=== PATIENT | female | born 1975 | race Caucasian/White ===

== ENCOUNTER 2017-03-20 10:25 | Inpatient (IN) | payer OTHER ==
[2017-03-20 12:51] VITALS: BMI 26.5
--- NOTE | 2017-03-20 14:03 | HP ---
COWS - Scale Resting Pulse: 1= NC 81-100 Sweatin=Flushed/Facial Moisture Restless Observation: 1= Difficult to Sit Still Pupil Size: 0= Normal to Room Light Bone or Joint Aches: 2= Severe Diffuse Aches Runny Nose/ Eye Tearin= Runny Nose/Eyes GI Upset > 30mins: 2= Nausea/Diarrhea Tremor Observation: 2= Slight Tremor Visible Yawning Observation: 2= >3x During Session Anxiety or Irritability: 2=Irritable/Anxious Goose Flesh Skin: 3=Piloerection COWS Score: 19 CIWA Score - CIWA Score Nausea/Vomitin-No Nausea/No Vomiting Muscle Tremors: 4-Moderate,w/Arms Extend Anxiety: 4-Mod. Anxious/Guarded Agitation: 4-Moderately Restless Paroxysmal Sweats: 3 Orientation: 0-Oriented Tacttile Disturbances: 0-None Auditory Disturbances: 0-None Visual Disturbances: 0-None Headache: 1-Very Mild CIWA-Ar Total Score: 16 Admission ROS S - HPI Chief Complaint: I am here for detox. Allergies/Adverse Reactions: Allergies Allergy/AdvReac Type Severity Reaction Status Date / Time No Known Drug Allergies Allergy Verified 03/20/17 13:49 History of Present Illness: pt is a 42yr old female with a history of heroin and alcohol dependence seeking detox for treatment. pt had been going to [facility] for a methadone abstinence program; however she stopped going and her last dose was 25mg on 03/01/17. since then pt was using heroin to maintain and now is ready for detox. Exam Limitations: No Limitations - Ebola screening Have you traveled outside of the country in the last 21 days: No Have you had contact with anyone from an Ebola affected area: No Have you been sick,other than usual withdrawal symptoms: No Do you have a fever: No - Review of Systems Constitutional: Chills, Loss of Appetite, Night Sweats, Changes in sleep, Unintentional Wgt. Loss EENT: reports: Nose Congestion Respiratory: reports: No Symptoms reported Cardiac: reports: No Symptoms Reported GI: reports: Diarrhea, Nausea, Poor Appetite, Poor Fluid Intake : reports: No Symptoms Reported Musculoskeletal: reports: Muscle Pain Integumentary: reports: Flushing, Sweating Neuro: reports: Headache, Tingling, Tremors Endocrine: reports: Excessive Sweating, Flushing, Intolerance to Cold, Intolerance to Heat Hematology: reports: No Symptoms Reported Psychiatric: reports: Judgement Intact, Mood/Affect Appropiate, Orientated x3, Agitated, Anxious Other Systems: Reviewed and Negative Patient History - Patient Medical History Hx Anemia: No Hx Asthma: No Hx Chronic Obstructive Pulmonary Disease (COPD): No Hx Cancer: No Hx Cardiac Disorders: No Hx Congestive Heart Failure: No Hx Hypertension: No Hx Hypercholesterolemia: No Hx Pacemaker: No HX Cerebrovascular Accident: No Hx Seizures: No Hx Dementia: No Hx Diabetes: No Hx Gastrointestinal Disorders: No Hx Liver Disease: No Hx Genitourinary Disorders: No Hx Sexually Transmitted Disorders: No Hx Renal Disease (ESRD): No Hx Thyroid Disease: No Hx Human Immunodeficiency Virus (HIV): No (negative) Hx Hepatitis C: No (negative) Hx Depression: No Hx Suicide Attempt: No Hx Bipolar Disorder: No Hx Schizophrenia: No - Patient Surgical History Past Surgical History: No Hx Neurologic Surgery: No Hx Cataract Extraction: No Hx Cardiac Surgery: No Hx Lung Surgery: No Hx Breast Surgery: No Hx Breast Biopsy: No Hx Abdominal Surgery: No Hx Appendectomy: No Hx Cholecystectomy: No Hx Genitourinary Surgery: No Hx Section: No Hx Orthopedic Surgery: No Anesthesia Reaction: No - PPD History Previous Implant?: Yes Documented Results: Positive w/o proof Implanted On Prior [facility] Admission?: No - Reproductive History Patient is a Female of Child Bearing Age (11 -55 yrs old): Yes Last Menstrual Period: 03/15/17 Patient : No - Smoking Cessation Smoking history: Current every day smoker Have you smoked in the past 12 months: Yes Aproximately how many cigarettes per day: 20 Cigars Per Day: 0 Hx Chewing Tobacco Use: No Initiated information on smoking cessation: Yes 'Breaking Loose' booklet given: 03/20/17 - Substance & Tx. History Hx Alcohol Use: Yes Hx Substance Use: Yes Substance Use Type: Alcohol, Cocaine, Heroin Hx Substance Use Treatment: Yes (last detox 2017 [facility]) - Substances Abused Heroin Route: Injection Frequency: Daily Amount used: 10 BAGS Age of first use: 12 Date of Last Use: 03/20/17 Alcohol Route: Oral Frequency: Daily Amount used: 10 BEERS Age of first use: 12 Date of Last Use: 03/19/17 Cocaine Route: Injection Frequency: Daily Amount used: $100 Age of first use: 12 Date of Last Use: 03/19/17 Family Disease History - Family Disease History Family History: Denies Admission Physical Exam [facility] - Vital Signs Vital Signs: Vital Signs - 24 hr 03/20/17 12:49 Temperature 96.4 F L Pulse Rate 82 Respiratory 19 Rate Blood Pressure 117/68 - Physical General Appearance: Yes: Appropriately Dressed, Moderate Distress HEENTM: Yes: Normal Voice, Nasal Congestion, Rhinorrhea Respiratory: Yes: Lungs Clear, Normal Breath Sounds, No Respiratory Distress Neck: Yes: No masses,lesions,Nodules Breast: Yes: Within Normal Limits Cardiology: Yes: Regular Rhythm, Regular Rate, S1, S2 Abdominal: Yes: Normal Bowel Sounds, Non Tender, Soft Genitourinary: Yes: Within Normal Limits Back: Yes: Normal Inspection Musculoskeletal: Yes: full range of Motion, Back pain Extremities: Yes: Normal Capillary Refill, Normal Inspection, Tremors Neurological: Yes: Fully Oriented, Alert, Normal Response Integumentary: Yes: Normal Color, Diaphoresis Lymphatic: Yes: Within Normal Limits - Diagnostic (1) Alcohol dependence with uncomplicated withdrawal Current Visit: Yes Status: Chronic (2) Cannabis dependence, uncomplicated Current Visit: Yes Status: Chronic (3) Cocaine dependence, uncomplicated Current Visit: Yes Status: Chronic (4) History of positive PPD Current Visit: Yes Status: Chronic (5) Nicotine dependence Current Visit: Yes Status: Chronic Qualifiers: Nicotine product type: cigarettes Substance use status: uncomplicated Qualified Code(s): F17.210 - Nicotine dependence, cigarettes, uncomplicated (6) Uncomplicated opioid dependence Current Visit: Yes Status: Chronic Cleared for Admission [facility] - Detox or Rehab [facility] Level of Care: Medically Managed Detox Regimen/Protocol: Methadone/Librium [facility] Breath Alcohol Content Breath Alcohol Content: 0 Urine Pregancy Test - Result Urine Test Results: Negative- NO Line Present Urine Drug Screen - Results Drug Screen Negative: No Urine Drug Screen Results: THC-Marijuana, CARMEN-Cocaine, OPI-Opiates, MTD- Methadone
[2017-03-20] MEDS ORDERED: MAG HYDROX/AL HYDROX/SIMETH 30 ML UNIT-DOSE CUP PO PRN (14:07)
[2017-03-20] MEDS ORDERED: LOPERAMIDE HCL 2 MG CAPSULE PO PRN (14:07)
[2017-03-20] MEDS ORDERED: ACETAMINOPHEN 325 MG TABLET (FP) PO PRN (14:07)
[2017-03-20] MEDS ORDERED: IBUPROFEN 400 MG TABLET (FP) PO PRN (14:07)
[2017-03-20] MEDS ORDERED: MENTHOL/PHENOL 1 EACH UD MM PRN (14:07)
[2017-03-20] MEDS ORDERED: guaiFENesin/D-METHORPHAN HB 10 ML UNIT-DOSE CUPS PO PRN (14:07)
[2017-03-20] MEDS ORDERED: NICOTINE POLACRILEX 4 MG GUM BUC PRN (14:07)
[2017-03-20] MEDS ORDERED: MAGNESIUM CITRATE 300 ML BOTTLE PO PRN (14:07)
[2017-03-20] MEDS ORDERED: chlordiazePOXIDE HCL 25 MG CAPSULE PO PRN (14:07)
[2017-03-20] MEDS ORDERED: P-EPHED 60MG/TRIPROLIDI 2.5MG TABLET PO PRN (14:07)
[2017-03-20] MEDS ORDERED: MAGNESIUM HYDROX 2400MG/30ML ORAL SUSPENSION 30 ML CUP PO PRN (14:07)
[2017-03-20] MEDS ORDERED: hydrOXYzine PAMOATE 50 MG CAPSULE (FP) PO PRN (14:07)
[2017-03-20] MEDS ORDERED: METHADONE HCL 10 MG TABLET (FOR DETOX USE ONLY) PO ONE ×2 (14:36→23:00)
[2017-03-20] MEDS ORDERED: chlordiazePOXIDE HCL 25 MG CAPSULE PO ONE (14:36)
[2017-03-20] MEDS: chlordiazePOXIDE HCL 25 MG CAPSULE PO SCH ×2 (18:05→22:15)
[2017-03-20] MEDS ORDERED: THIAMINE HCL 100 MG TABLET (FP) PO SCH (22:00)
[2017-03-21 00:05] LABS: URINE APPEARANCE CLOUDY; URINE BILIRUBIN NEGATIVE (NEGATIVE); URINE BLOOD NEGATIVE (NEGATIVE); URINE COLOR DKYELLOW; URINE GLUCOSE (UA) NEGATIVE (NEGATIVE); URINE KETONE TRACE (NEGATIVE); URINE LEUK ESTERASE NEGATIVE (NEGATIVE); URINE NITRITE NEGATIVE (NEGATIVE); URINE PROTEIN NEGATIVE (NEGATIVE)
[2017-03-21] MEDS: chlordiazePOXIDE HCL 25 MG CAPSULE PO SCH ×2 (06:35→10:25)
[2017-03-21] MEDS ORDERED: PRENATAL VITAMINS W/ FOLIC ACID TABLET (FP) PO SCH (10:00)
[2017-03-21] MEDS ORDERED: METHADONE HCL 10 MG TABLET (FOR DETOX USE ONLY) PO SCH (10:00)
[2017-03-21] MEDS ORDERED: NICOTINE 21 MG/24 HOURS TOPICAL PATCH TD SCH (10:00)
[2017-03-21 10:16] LABS: HEMATOCRIT 35.6 % (32.4-45.2); HEMOGLOBIN 11.6 GM/dL (10.7-15.3); MCHC 32.6 g/dl (32.0-36.0); MEAN CELL VOLUME 82.9 fl (80-96); PLATELET COUNT 304 K/MM3 (134-434); RBC 4.29 M/mm3 (3.60-5.2); WHITE BLOOD COUNT 10.6 K/mm3 (4.0-10.0)
[2017-03-21 10:34] LABS: ALBUMIN 3.4 g/dl (3.4-5.0); ANION GAP 5 (8-16); BLOOD UREA NITROGEN 20 mg/dL (7-18); CALCIUM 8.7 mg/dL (8.5-10.1); CHLORIDE 107 mmol/L (98-107); CO2 29 mmol/L (21-32); CREATININE 0.9 mg/dL (0.55-1.02); GLUCOSE,RANDOM 89 mg/dL (74-106); POTASSIUM 4.6 mmol/L (3.5-5.1); SGOT/AST 12 U/L (15-37); SGPT/ALT 17 U/L (12-78); SODIUM 141 mmol/L (136-145)
[2017-03-21 10:35] LABS: ALK PHOS 77 U/L (45-117); BILIRUBIN,TOTAL 0.3 mg/dL (0.2-1.0); TOT PROT 7.3 g/dl (6.4-8.2)
--- NOTE | 2017-03-21 10:40 | EKG ---
Test Reason : Blood Pressure : / mmHG Vent. Rate : 076 BPM Atrial Rate : 076 BPM P-R Int : 138 ms QRS Dur : 078 ms QT Int : 396 ms P-R-T Axes : 068 047 055 degrees QTc Int : 445 ms NORMAL SINUS RHYTHM CANNOT RULE OUT ANTERIOR INFARCT , AGE UNDETERMINED ABNORMAL ECG WHEN COMPARED WITH ECG OF 29-NOV-2016 21:15, NO SIGNIFICANT CHANGE WAS FOUND Confirmed by COSME UGARTE, NGUYEN ([id number]) on 03/21/2017 10:40:17 AM Referred By: Confirmed By:NGUYEN AGUIAR MD
--- NOTE | 2017-03-21 13:29 | PN ---
S CIWA - CIWA Score Nausea/Vomitin Muscle Tremors: 4-Moderate,w/Arms Extend Anxiety: 4-Mod. Anxious/Guarded Agitation: 1-Slight > Activity Paroxysmal Sweats: 3 Orientation: 0-Oriented Tacttile Disturbances: 1-Very Mild Itch/Numbness Auditory Disturbances: 1-Very Mild Visual Disturbances: 1-Very Mild Sensitivity Headache: 0-None Present CIWA-Ar Total Score: 18 BHS COWS - Scale Resting Pulse: 0= LA 80 or Below Sweatin= Chills/Flushing Restless Observation: 1= Difficult to Sit Still Pupil Size: 0= Normal to Room Light Bone or Joint Aches: 2= Severe Diffuse Aches Runny Nose/ Eye Tearin= None GI Upset > 30mins: 2= Nausea/Diarrhea Tremor Observation of Outstretched Hands: 2= Slight Tremor Visible Yawning Observation: 2= >3x During Session Anxiety or Irritability: 2=Irritable/Anxious Goose Flesh Skin: 3=Piloerection COWS Score: 15 BHS Progress Note (SOAP) Subjective: alert, body aches, shakes, chills, interrupted sleep Objective: 03/21/17 13:24 Last Vital Signs Temp Pulse Resp BP Pulse Ox 98.3 F 79 20 126/75 03/21/17 10:00 03/21/17 10:00 03/21/17 10:00 03/21/17 10:00 Laboratory Last Values WBC 10.6 K/mm3 (4.0-10.0) H 03/21/17 05:45 RBC 4.29 M/mm3 (3.60-5.2) 03/21/17 05:45 Hgb 11.6 GM/dL (10.7-15.3) 03/21/17 05:45 Hct 35.6 % (32.4-45.2) 03/21/17 05:45 MCV 82.9 fl (80-96) 03/21/17 05:45 MCH 27.0 pg (25.7-33.7) 03/21/17 05:45 MCHC 32.6 g/dl (32.0-36.0) 03/21/17 05:45 RDW 18.0 % (11.6-15.6) H D 03/21/17 05:45 Plt Count 304 K/MM3 (134-434) 03/21/17 05:45 MPV 8.0 fl (7.5-11.1) D 03/21/17 05:45 Sodium 141 mmol/L (136-145) 03/21/17 05:45 Potassium 4.6 mmol/L (3.5-5.1) 03/21/17 05:45 Chloride 107 mmol/L (98-107) 03/21/17 05:45 Carbon Dioxide 29 mmol/L (21-32) 03/21/17 05:45 Anion Gap 5 (8-16) L 03/21/17 05:45 BUN 20 mg/dL (7-18) H 03/21/17 05:45 Creatinine 0.9 mg/dL (0.55-1.02) 03/21/17 05:45 Creat Clearance w eGFR > 60 (>60) 03/21/17 05:45 Random Glucose 89 mg/dL (74-106) 03/21/17 05:45 Calcium 8.7 mg/dL (8.5-10.1) 03/21/17 05:45 Total Bilirubin 0.3 mg/dL (0.2-1.0) D 03/21/17 05:45 AST 12 U/L (15-37) L 03/21/17 05:45 ALT 17 U/L (12-78) 03/21/17 05:45 Alkaline Phosphatase 77 U/L (45-117) 03/21/17 05:45 Total Protein 7.3 g/dl (6.4-8.2) 03/21/17 05:45 Albumin 3.4 g/dl (3.4-5.0) 03/21/17 05:45 Urine Color Dkyellow 03/20/17 19:43 Urine Appearance Cloudy 03/20/17 19:43 Urine pH 6.0 (5.0-8.0) 03/20/17 19:43 Ur Specific [place] 1.029 (1.001-1.035) 03/20/17 19:43 Urine Protein Negative (NEGATIVE) 03/20/17 19:43 Urine Glucose (UA) Negative (NEGATIVE) 03/20/17 19:43 Urine Ketones Trace (NEGATIVE) H 03/20/17 19:43 Urine Blood Negative (NEGATIVE) 03/20/17 19:43 Urine Nitrite Negative (NEGATIVE) 03/20/17 19:43 Urine Bilirubin Negative (NEGATIVE) 03/20/17 19:43 Urine Urobilinogen 2.0 mg/dL (0.2-1.0) H 03/20/17 19:43 Ur Leukocyte Esterase Negative (NEGATIVE) 03/20/17 19:43 Labs noted Assessment: 03/21/17 13:24 AOx3 No apparent distress Withdrawals symptoms Plan: Continue Detox
[2017-03-21 14:33] VITALS: TEMP 98.1
[2017-03-21] MEDS ORDERED: chlordiazePOXIDE HCL 25 MG CAPSULE PO SCH (17:00)
[2017-03-21 18:04] VITALS: BP 116/76; PULSE 73
--- NOTE | 2017-03-21 22:07 | DS ---
[facility] Detox Discharge Summary Admission Date: 03/20/17 Discharge Date: 03/21/17 - History Present History: Alcohol Dependence, Opioid Dependence Pertinent Past History: PATIENT WANTS TO LEAVE THE DETOX UNIT REFUSES TO WAIT FACE TO FACE WITH THE PROVIDER - Physical Exam Results Vital Signs: Vital Signs Temperature 98.1 F 03/21/17 18:03 Pulse Rate 73 03/21/17 18:03 Respiratory Rate 18 03/21/17 18:03 Blood Pressure 116/76 03/21/17 18:03 O2 Sat by Pulse Oximetry (%) Pertinent Admission Physical Exam Findings: WITHDRAWAL SX Vital Signs Temperature 98.1 F 03/21/17 18:03 Pulse Rate 73 03/21/17 18:03 Respiratory Rate 18 03/21/17 18:03 Blood Pressure 116/76 03/21/17 18:03 O2 Sat by Pulse Oximetry (%) Laboratory Last Values WBC 10.6 K/mm3 (4.0-10.0) H 03/21/17 05:45 RBC 4.29 M/mm3 (3.60-5.2) 03/21/17 05:45 Hgb 11.6 GM/dL (10.7-15.3) 03/21/17 05:45 Hct 35.6 % (32.4-45.2) 03/21/17 05:45 MCV 82.9 fl (80-96) 03/21/17 05:45 MCH 27.0 pg (25.7-33.7) 03/21/17 05:45 MCHC 32.6 g/dl (32.0-36.0) 03/21/17 05:45 RDW 18.0 % (11.6-15.6) H D 03/21/17 05:45 Plt Count 304 K/MM3 (134-434) 03/21/17 05:45 MPV 8.0 fl (7.5-11.1) D 03/21/17 05:45 Sodium 141 mmol/L (136-145) 03/21/17 05:45 Potassium 4.6 mmol/L (3.5-5.1) 03/21/17 05:45 Chloride 107 mmol/L (98-107) 03/21/17 05:45 Carbon Dioxide 29 mmol/L (21-32) 03/21/17 05:45 Anion Gap 5 (8-16) L 03/21/17 05:45 BUN 20 mg/dL (7-18) H 03/21/17 05:45 Creatinine 0.9 mg/dL (0.55-1.02) 03/21/17 05:45 Creat Clearance w eGFR > 60 (>60) 03/21/17 05:45 Random Glucose 89 mg/dL (74-106) 03/21/17 05:45 Calcium 8.7 mg/dL (8.5-10.1) 03/21/17 05:45 Total Bilirubin 0.3 mg/dL (0.2-1.0) D 03/21/17 05:45 AST 12 U/L (15-37) L 03/21/17 05:45 ALT 17 U/L (12-78) 03/21/17 05:45 Alkaline Phosphatase 77 U/L (45-117) 03/21/17 05:45 Total Protein 7.3 g/dl (6.4-8.2) 03/21/17 05:45 Albumin 3.4 g/dl (3.4-5.0) 03/21/17 05:45 Urine Color Dkyellow 03/20/17 19:43 Urine Appearance Cloudy 03/20/17 19:43 Urine pH 6.0 (5.0-8.0) 03/20/17 19:43 Ur Specific [place] 1.029 (1.001-1.035) 03/20/17 19:43 Urine Protein Negative (NEGATIVE) 03/20/17 19:43 Urine Glucose (UA) Negative (NEGATIVE) 03/20/17 19:43 Urine Ketones Trace (NEGATIVE) H 03/20/17 19:43 Urine Blood Negative (NEGATIVE) 03/20/17 19:43 Urine Nitrite Negative (NEGATIVE) 03/20/17 19:43 Urine Bilirubin Negative (NEGATIVE) 03/20/17 19:43 Urine Urobilinogen 2.0 mg/dL (0.2-1.0) H 03/20/17 19:43 Ur Leukocyte Esterase Negative (NEGATIVE) 03/20/17 19:43 RPR Titer Nonreactive (NONREACTIVE) 03/21/17 05:45 LAB NOTED - Treatment Hospital Course: Detox Protocol Followed, Responded well - Medication Discharge Medications: Ambulatory Orders NK [No Known Home Medication] 03/20/17 - AMA Did Patient Leave Against Medical Advice: Yes
[2017-03-22] MEDS ORDERED: METHADONE HCL 5 MG TABLET (FOR DETOX USE ONLY) PO SCH (10:00)
[2017-03-22] MEDS ORDERED: chlordiazePOXIDE 5 MG CAPSULE PO SCH (17:00)
[2017-03-23] MEDS ORDERED: chlordiazePOXIDE HCL 10 MG CAPSULE PO SCH (17:00)
[2017-03-24] MEDS ORDERED: METHADONE HCL 10 MG TABLET (FOR DETOX USE ONLY) PO SCH (10:00)
[2017-03-25] MEDS ORDERED: METHADONE HCL 5 MG TABLET (FOR DETOX USE ONLY) PO SCH (06:00)
== END 2017-03-21 18:42 | disposition left against medical advice (07) | DRG 770 ==
LOC: YASAS 10:25 → Y6N 14:23
PROVIDERS: ADMIT Internal Medicine; ATTEND Internal Medicine
PROC: HZ2ZZZZ Detoxification Services for Substance Abuse Treatment (ICD-10-PCS; principal; 2017-03-20)
DX: F11.23 Opioid dependence with withdrawal (principal); F10.230 Alcohol dependence with withdrawal, uncomplicated; F14.20 Cocaine dependence, uncomplicated; F12.20 Cannabis dependence, uncomplicated; F17.210 Nicotine dependence, cigarettes, uncomplicated; R76.11 Nonspecific reaction to tuberculin skin test without active tuberculosis
CPT/HCPCS: 36415; 80053; 81003; 85027; 86593; 93005; 93010

== ENCOUNTER 2017-10-05 10:50 | Inpatient (IN) | payer OTHER ==
[2017-10-05 11:24] VITALS: BMI 29.0
--- NOTE | 2017-10-05 13:16 | HP ---
CIWA Score - CIWA Score Nausea/Vomitin Muscle Tremors: 3 Anxiety: 2 Agitation: 2 Paroxysmal Sweats: 3 Orientation: 0-Oriented Tacttile Disturbances: 2-Mild Itch/Numbness/Burn Auditory Disturbances: 0-None Visual Disturbances: 0-None Headache: 0-None Present CIWA-Ar Total Score: 15 Admission ROS BHS - HPI Chief Complaint: I need to detox from alcohol and xanaax. Allergies/Adverse Reactions: Allergies Allergy/AdvReac Type Severity Reaction Status Date / Time No Known Drug Allergies Allergy Verified 10/05/17 11:11 History of Present Illness: 42 y/o f pt on OTP who has been abusing alcohol and xanax seeking detox. Exam Limitations: No Limitations - Ebola screening Have you traveled outside of the country in the last 21 days: No Have you had contact with anyone from an Ebola affected area: No Have you been sick,other than usual withdrawal symptoms: No Do you have a fever: No - Review of Systems Constitutional: Malaise, Night Sweats EENT: reports: No Symptoms Reported Respiratory: reports: No Symptoms reported Cardiac: reports: No Symptoms Reported GI: reports: Nausea, Indigestion, Abdominal cramping : reports: Frequency Musculoskeletal: reports: Back Pain, Muscle Pain Integumentary: reports: No Symptoms Reported Neuro: reports: Tremors Endocrine: reports: No Symptoms Reported Hematology: reports: No Symptoms Reported Psychiatric: reports: Orientated x3 Other Systems: Reviewed and Negative Patient History - Patient Medical History Hx Anemia: No Hx Asthma: No Hx Chronic Obstructive Pulmonary Disease (COPD): No Hx Cancer: No Hx Cardiac Disorders: No Hx Congestive Heart Failure: No Hx Hypertension: No Hx Hypercholesterolemia: No Hx Pacemaker: No HX Cerebrovascular Accident: No Hx Seizures: No Hx Dementia: No Hx Diabetes: No Hx Gastrointestinal Disorders: No Hx Liver Disease: No Hx Genitourinary Disorders: No Hx Sexually Transmitted Disorders: No Hx Renal Disease (ESRD): No Hx Thyroid Disease: No Hx Human Immunodeficiency Virus (HIV): Yes (July 2017 @ [facility] no meds x 2 weeks ) Hx Hepatitis C: Yes (but negative viral load) Hx Depression: No Hx Suicide Attempt: No Hx Bipolar Disorder: Yes Hx Schizophrenia: No - Patient Surgical History Past Surgical History: No Hx Neurologic Surgery: No Hx Cataract Extraction: No Hx Cardiac Surgery: No Hx Lung Surgery: No Hx Breast Surgery: No Hx Breast Biopsy: No Hx Abdominal Surgery: No Hx Appendectomy: Yes (age 7) Hx Cholecystectomy: No Hx Genitourinary Surgery: No Hx Section: No Hx Orthopedic Surgery: No Other Surgical History: tonsillectomy age 14 Anesthesia Reaction: No - PPD History Previous Implant?: Yes Documented Results: Positive w/o proof Date: 11/30/16 Results: CXR(-)11/30/16 - Reproductive History Patient is a Female of Child Bearing Age (11 -55 yrs old): Yes Last Menstrual Period: 09/26/17 Patient : No - Smoking Cessation Smoking history: Current every day smoker Have you smoked in the past 12 months: Yes Aproximately how many cigarettes per day: 20 Cigars Per Day: 0 Hx Chewing Tobacco Use: No Initiated information on smoking cessation: Yes 'Breaking Loose' booklet given: 10/05/17 - Substance & Tx. History Hx Alcohol Use: Yes Hx Substance Use: Yes Substance Use Type: Alcohol, Opiates, Tranquilizers Hx Substance Use Treatment: Yes ([facility] ) - Substances Abused Cocaine Route: Injection Frequency: Daily Amount used: $80 Age of first use: 12 Date of Last Use: 10/04/17 Heroin Route: Injection Frequency: Daily Amount used: 1-2 bags Age of first use: 12 Date of Last Use: 10/04/17 Alcohol-vodka/beer Route: Oral Frequency: Daily Amount used: 2 pts./1-6 pk. Age of first use: 12 Date of Last Use: 10/04/17 Xanax Route: Oral Frequency: 3-6 times per week Amount used: 4 mg. Age of first use: 32 Date of Last Use: 09/28/17 Percocet Route: Oral Frequency: 1-3 times last 30 days Amount used: 1-2 tabs. (10 mg.) Age of first use: 41 Date of Last Use: 10/04/17 Family Disease History - Family Disease History Family Disease History: Other: Father (living, on dialysis, etoh/drugs), Mother (living, healthy), Brother (one - living- healthy ) Admission Physical Exam BHS - Vital Signs Vital Signs: Vital Signs - 24 hr 10/05/17 11:17 Temperature 98.2 F Pulse Rate 71 Respiratory 20 Rate Blood Pressure 112/73 42 y/o f pt aox3 , anxious , restless , shaky , but cooperative. - Physical General Appearance: Yes: No Apparent Distress, Tremorous, Sweating, Anxious HEENTM: Yes: EOMI, Hearing grossly Normal, Normal Voice, RUSSELL, Other (upper and lower dentures) Respiratory: Yes: Chest Non-Tender, Lungs Clear, Normal Breath Sounds, No Respiratory Distress Neck: Yes: Supple, Trachea in good position, Other (left neck mass non tender at site of iv use) Breast: Yes: Breast Exam Deferred Cardiology: Yes: Regular Rhythm, Regular Rate, S1, S2 Abdominal: Yes: Non Tender, Soft, Increased Bowel Sounds Genitourinary: Yes: Frequency Back: Yes: Decreased Range of Motion Musculoskeletal: Yes: Back pain Extremities: Yes: Tremors, Other (scattereed track tao on hands) Neurological: Yes: [employer] insurance II-XII NML intact, Fully Oriented, Alert, Motor Strength 5/5, Finger to Nose Integumentary: Yes: Diaphoresis Lymphatic: Yes: Within Normal Limits - Diagnostic (1) Alcohol dependence with uncomplicated withdrawal Current Visit: No Status: Chronic (2) Methadone maintenance therapy patient Current Visit: No Status: Chronic Comment: LDM on 10/04/2017 with methadone 70mg/d at [facility]. Verified by Lorin Valencia LPN. (3) Cocaine dependence, uncomplicated Current Visit: No Status: Acute (4) Sedative, hypnotic or anxiolytic dependence with withdrawal, uncomplicated Current Visit: No Status: Acute (5) Nicotine dependence Current Visit: No Status: Chronic Qualifiers: Nicotine product type: cigarettes Substance use status: uncomplicated Qualified Code(s): F17.210 - Nicotine dependence, cigarettes, uncomplicated (6) HIV (human immunodeficiency virus infection) Current Visit: Yes Status: Chronic Comment: Recently dx'ed in July 2017. Has not taken ARV x 2 months , can't recall names. (7) HCV (hepatitis C virus) Current Visit: Yes Status: Chronic Cleared for Admission S - Detox or Rehab [facility] Level of Care: Medically Managed Detox Regimen/Protocol: Librium [facility] Breath Alcohol Content Breath Alcohol Content: 0 Urine Pregancy Test - Result Urine Test Results: Negative- NO Line Present Urine Drug Screen - Results Drug Screen Negative: No Urine Drug Screen Results: CARMEN-Cocaine, OPI-Opiates, MTD-Methadone, OXY- Oxycodone
[2017-10-05] MEDS ORDERED: IBUPROFEN 400 MG TABLET (FP) PO PRN (13:46)
[2017-10-05] MEDS ORDERED: NICOTINE POLACRILEX 4 MG GUM BUC PRN (13:46)
[2017-10-05] MEDS ORDERED: MAG HYDROX/AL HYDROX/SIMETH 30 ML UNIT-DOSE CUP PO PRN (13:46)
[2017-10-05] MEDS ORDERED: MAGNESIUM CITRATE 300 ML BOTTLE PO PRN (13:46)
[2017-10-05] MEDS ORDERED: MAGNESIUM HYDROX 2400MG/30ML ORAL SUSPENSION 30 ML CUP PO PRN (13:46)
[2017-10-05] MEDS ORDERED: ACETAMINOPHEN 325 MG TABLET (FP) PO PRN (13:46)
[2017-10-05] MEDS ORDERED: LOPERAMIDE HCL 2 MG CAPSULE PO PRN (13:46)
[2017-10-05] MEDS ORDERED: guaiFENesin/D-METHORPHAN HB 10 ML UNIT-DOSE CUPS PO PRN (13:46)
[2017-10-05] MEDS ORDERED: MENTHOL/PHENOL 1 EACH UD MM PRN (13:46)
[2017-10-05] MEDS ORDERED: hydrOXYzine PAMOATE 25 MG CAPSULE (FP) PO PRN (13:46)
[2017-10-05] MEDS ORDERED: P-EPHED 60MG/TRIPROLIDI 2.5MG TABLET PO PRN (13:46)
[2017-10-05] MEDS ORDERED: METHADONE HCL 10 MG TABLET PO ONE (13:50)
[2017-10-05] MEDS ORDERED: chlordiazePOXIDE HCL 25 MG CAPSULE PO ONE (14:15)
[2017-10-05] MEDS ORDERED: METHADONE 40 MG, METHADONE 30 MG PO ONE (14:30)
[2017-10-05] MEDS ORDERED: METHADONE HCL 40 MG DISPERSABLE TABLET ONE (14:45)
[2017-10-05] MEDS ORDERED: METHADONE HCL 10 MG TABLET ONE (14:45)
[2017-10-05] MEDS: chlordiazePOXIDE HCL 25 MG CAPSULE PO SCH ×2 (17:12→22:11)
[2017-10-05] MEDS: THIAMINE HCL 100 MG TABLET (FP) PO SCH (22:11)
[2017-10-05] MEDS: MELATONIN 5 MG TABLETS PO PRN (22:12)
[2017-10-06] MEDS ORDERED: METHADONE HCL 40 MG DISPERSABLE TABLET ONE (04:24)
[2017-10-06] MEDS ORDERED: METHADONE HCL 10 MG TABLET ONE (04:25)
[2017-10-06] MEDS: METHADONE 40 MG, METHADONE 30 MG PO SCH (05:39)
[2017-10-06] MEDS: chlordiazePOXIDE HCL 25 MG CAPSULE PO SCH ×4 (05:40→22:04)
[2017-10-06] MEDS ORDERED: METHADONE HCL 40 MG DISPERSABLE TABLET PO SCH (06:00)
--- NOTE | 2017-10-06 09:02 | EKG ---
Test Reason : Blood Pressure : / mmHG Vent. Rate : 060 BPM Atrial Rate : 060 BPM P-R Int : 140 ms QRS Dur : 076 ms QT Int : 448 ms P-R-T Axes : 063 039 051 degrees QTc Int : 448 ms NORMAL SINUS RHYTHM NORMAL ECG WHEN COMPARED WITH ECG OF 26-MAY-2017 14:46, NO SIGNIFICANT CHANGE WAS FOUND Confirmed by NGUYEN AGUIAR MD ([id number]) on 10/06/2017 9:02:43 AM Referred By: Confirmed By:NGUYEN AGUIAR MD
[2017-10-06] MEDS: PRENATAL VITAMINS W/ FOLIC ACID TABLET (FP) PO SCH (10:25)
[2017-10-06] MEDS: NICOTINE 21 MG/24 HOURS TOPICAL PATCH TD SCH (10:25)
[2017-10-06 10:28] LABS: URINE APPEARANCE TURBID; URINE BILIRUBIN NEGATIVE (<2.0 mg/dL); URINE COLOR YELLOW; URINE GLUCOSE (UA) NEGATIVE (NEGATIVE); URINE KETONE NEGATIVE (NEGATIVE); URINE LEUK ESTERASE TRACE (NEGATIVE); URINE NITRITE POSITIVE (NEGATIVE); URINE PROTEIN NEGATIVE (NEGATIVE); URINE UROBILINOGEN NEGATIVE mg/dL (0.2-1.0)
[2017-10-06 10:36] LABS: HEMATOCRIT 34.4 % (32.4-45.2); HEMOGLOBIN 11.3 GM/dL (10.7-15.3); MCH 28.3 pg (25.7-33.7); MCHC 32.8 g/dl (32.0-36.0); MEAN CELL VOLUME 86.2 fl (80-96); MEAN PLT VOLUME 8.3 fl (7.5-11.1); PLATELET COUNT 337 K/MM3 (134-434); RBC 3.99 M/mm3 (3.60-5.2); RDW 16.2 % (11.6-15.6)
[2017-10-06 10:40] LABS: CHLORIDE 104 mmol/L (98-107); POTASSIUM 5.4 mmol/L (3.5-5.1); SODIUM 137 mmol/L (136-145)
[2017-10-06 10:49] LABS: ALBUMIN 3.9 g/dl (3.4-5.0); ALK PHOS 96 U/L (45-117); ANION GAP 5 (8-16); BILIRUBIN,TOTAL 0.3 mg/dL (0.2-1.0); BLOOD UREA NITROGEN 21 mg/dL (7-18); CALCIUM 9.2 mg/dL (8.5-10.1); CO2 28 mmol/L (21-32); CREATININE 1.1 mg/dL (0.55-1.02); GLUCOSE,RANDOM 107 mg/dL (74-106); SGOT/AST 19 U/L (15-37); SGPT/ALT 31 U/L (12-78); TOT PROT 8.2 g/dl (6.4-8.2)
[2017-10-06 10:51] LABS: EPI CELLS MANY /HPF (FEW); URINE BACTERIA MANY /hpf (NONE SEEN); URINE MUCUS RARE
--- NOTE | 2017-10-06 14:22 | PN ---
[facility] CIWA - CIWA Score Nausea/Vomitin Muscle Tremors: 3 Anxiety: 3 Agitation: 2 Paroxysmal Sweats: 1-Minimal Palms Moist Orientation: 0-Oriented Tacttile Disturbances: 1-Very Mild Itch/Numbness Auditory Disturbances: 1-Very Mild Visual Disturbances: 0-None Headache: 2-Mild CIWA-Ar Total Score: 16 S Progress Note (SOAP) Subjective: alert,irritable,anxious,interrupted sleep,tremor Objective: 10/06/17 14:18 Vital Signs Temperature 98.1 F 10/06/17 10:07 Pulse Rate 55 L 10/06/17 10:07 Respiratory Rate 16 10/06/17 10:07 Blood Pressure 99/61 10/06/17 10:07 O2 Sat by Pulse Oximetry (%) ekg nsr 60/min qt/qtc 448/448 Laboratory Last Values WBC 7.0 K/mm3 (4.0-10.0) 10/06/17 06:00 RBC 3.99 M/mm3 (3.60-5.2) 10/06/17 06:00 Hgb 11.3 GM/dL (10.7-15.3) 10/06/17 06:00 Hct 34.4 % (32.4-45.2) 10/06/17 06:00 MCV 86.2 fl (80-96) 10/06/17 06:00 MCH 28.3 pg (25.7-33.7) 10/06/17 06:00 MCHC 32.8 g/dl (32.0-36.0) 10/06/17 06:00 RDW 16.2 % (11.6-15.6) H 10/06/17 06:00 Plt Count 337 K/MM3 (134-434) 10/06/17 06:00 MPV 8.3 fl (7.5-11.1) 10/06/17 06:00 Sodium 137 mmol/L (136-145) 10/06/17 06:00 Potassium 5.4 mmol/L (3.5-5.1) H 10/06/17 06:00 Chloride 104 mmol/L (98-107) 10/06/17 06:00 Carbon Dioxide 28 mmol/L (21-32) 10/06/17 06:00 Anion Gap 5 (8-16) L 10/06/17 06:00 BUN 21 mg/dL (7-18) H 10/06/17 06:00 Creatinine 1.1 mg/dL (0.55-1.02) H 10/06/17 06:00 Creat Clearance w eGFR 54.21 (>60) 10/06/17 06:00 Random Glucose 107 mg/dL (74-106) H 10/06/17 06:00 Calcium 9.2 mg/dL (8.5-10.1) 10/06/17 06:00 Total Bilirubin 0.3 mg/dL (0.2-1.0) 10/06/17 06:00 AST 19 U/L (15-37) 10/06/17 06:00 ALT 31 U/L (12-78) 10/06/17 06:00 Alkaline Phosphatase 96 U/L (45-117) 10/06/17 06:00 Total Protein 8.2 g/dl (6.4-8.2) 10/06/17 06:00 Albumin 3.9 g/dl (3.4-5.0) 10/06/17 06:00 Urine Color Yellow 10/06/17 09:00 Urine Appearance Turbid 10/06/17 09:00 Urine pH 6.0 (5.0-8.0) 10/06/17 09:00 Ur Specific [place] 1.024 (1.001-1.035) 10/06/17 09:00 Urine Protein Negative (NEGATIVE) 10/06/17 09:00 Urine Glucose (UA) Negative (NEGATIVE) 10/06/17 09:00 Urine Ketones Negative (NEGATIVE) 10/06/17 09:00 Urine Blood Negative (NEGATIVE) 10/06/17 09:00 Urine Nitrite Positive (NEGATIVE) 10/06/17 09:00 Urine Bilirubin Negative (<2.0 mg/dL) 10/06/17 09:00 Urine Urobilinogen Negative mg/dL (0.2-1.0) 10/06/17 09:00 Ur Leukocyte Esterase Trace (NEGATIVE) 10/06/17 09:00 Urine WBC (Auto) 41 /hpf (3-5) 10/06/17 09:00 Urine RBC (Auto) None /hpf (0-3) 10/06/17 09:00 Ur Epithelial Cells Many /HPF (FEW) 10/06/17 09:00 Urine Bacteria Many /hpf (NONE SEEN) 10/06/17 09:00 Urine Mucus Rare 10/06/17 09:00 Assessment: 10/06/17 14:19 withdrawal symptom Plan: continue detox,k is 5.4,bun 21,creatinine 1.1,encourage oral fluid,repeat bmp in am,repeat ua, kayexylate 15 gram po
[2017-10-06] MEDS ORDERED: SODIUM POLYSTYRENE SULFONATE 15 GM/60 ML BOTTLE PO ONE ×3 (14:23→18:30)
[2017-10-06] MEDS: THIAMINE HCL 100 MG TABLET (FP) PO SCH (22:04)
[2017-10-06] MEDS: MELATONIN 5 MG TABLETS PO PRN (22:04)
[2017-10-07] MEDS ORDERED: METHADONE HCL 40 MG DISPERSABLE TABLET ONE (02:49)
[2017-10-07] MEDS ORDERED: METHADONE HCL 10 MG TABLET ONE (02:50)
[2017-10-07] MEDS: chlordiazePOXIDE HCL 25 MG CAPSULE PO SCH ×2 (05:37→10:37)
[2017-10-07] MEDS: METHADONE 40 MG, METHADONE 30 MG PO SCH (05:37)
[2017-10-07 10:19] LABS: URINE APPEARANCE CLOUDY; URINE BILIRUBIN NEGATIVE (<2.0 mg/dL); URINE COLOR YELLOW; URINE GLUCOSE (UA) NEGATIVE (NEGATIVE); URINE KETONE NEGATIVE (NEGATIVE); URINE LEUK ESTERASE TRACE (NEGATIVE); URINE NITRITE NEGATIVE (NEGATIVE); URINE PROTEIN NEGATIVE (NEGATIVE); URINE UROBILINOGEN NEGATIVE mg/dL (0.2-1.0)
[2017-10-07 10:26] LABS: EPI CELLS MANY /HPF (FEW); URINE BACTERIA MANY /hpf (NONE SEEN); URINE HYALINE CAST 2 /lpf; URINE MUCUS RARE
[2017-10-07 10:33] LABS: CHLORIDE 104 mmol/L (98-107); POTASSIUM 5.1 mmol/L (3.5-5.1); SODIUM 139 mmol/L (136-145)
[2017-10-07] MEDS: PRENATAL VITAMINS W/ FOLIC ACID TABLET (FP) PO SCH (10:36)
[2017-10-07] MEDS: NICOTINE 21 MG/24 HOURS TOPICAL PATCH TD SCH (10:37)
[2017-10-07 10:39] LABS: ANION GAP 5 (8-16); BLOOD UREA NITROGEN 24 mg/dL (7-18); CALCIUM 8.6 mg/dL (8.5-10.1); CO2 30 mmol/L (21-32); CREATININE 0.8 mg/dL (0.55-1.02); GLUCOSE,RANDOM 77 mg/dL (74-106)
--- NOTE | 2017-10-07 13:22 | PN ---
[facility] CIWA - CIWA Score Nausea/Vomitin-No Nausea/No Vomiting Muscle Tremors: 4-Moderate,w/Arms Extend Anxiety: 4-Mod. Anxious/Guarded Agitation: 3 Paroxysmal Sweats: 1-Minimal Palms Moist Orientation: 0-Oriented Tacttile Disturbances: 0-None Auditory Disturbances: 0-None Visual Disturbances: 0-None Headache: 0-None Present CIWA-Ar Total Score: 12 BHS Progress Note (SOAP) Subjective: sweat tremor restlessness anxiety trouble sleep at night Objective: 10/07/17 13:21 Vital Signs Temperature 98.6 F 10/07/17 10:56 Pulse Rate 66 10/07/17 10:56 Respiratory Rate 18 10/07/17 10:56 Blood Pressure 110/72 10/07/17 10:56 O2 Sat by Pulse Oximetry (%) Laboratory Last Values WBC 7.0 K/mm3 (4.0-10.0) 10/06/17 06:00 RBC 3.99 M/mm3 (3.60-5.2) 10/06/17 06:00 Hgb 11.3 GM/dL (10.7-15.3) 10/06/17 06:00 Hct 34.4 % (32.4-45.2) 10/06/17 06:00 MCV 86.2 fl (80-96) 10/06/17 06:00 MCH 28.3 pg (25.7-33.7) 10/06/17 06:00 MCHC 32.8 g/dl (32.0-36.0) 10/06/17 06:00 RDW 16.2 % (11.6-15.6) H 10/06/17 06:00 Plt Count 337 K/MM3 (134-434) 10/06/17 06:00 MPV 8.3 fl (7.5-11.1) 10/06/17 06:00 Sodium 139 mmol/L (136-145) 10/07/17 07:40 Potassium 5.1 mmol/L (3.5-5.1) 10/07/17 07:40 Chloride 104 mmol/L (98-107) 10/07/17 07:40 Carbon Dioxide 30 mmol/L (21-32) 10/07/17 07:40 Anion Gap 5 (8-16) L 10/07/17 07:40 BUN 24 mg/dL (7-18) H 10/07/17 07:40 Creatinine 0.8 mg/dL (0.55-1.02) 10/07/17 07:40 Creat Clearance w eGFR > 60 (>60) 10/07/17 07:40 Random Glucose 77 mg/dL (74-106) 10/07/17 07:40 Calcium 8.6 mg/dL (8.5-10.1) 10/07/17 07:40 Total Bilirubin 0.3 mg/dL (0.2-1.0) 10/06/17 06:00 AST 19 U/L (15-37) 10/06/17 06:00 ALT 31 U/L (12-78) 10/06/17 06:00 Alkaline Phosphatase 96 U/L (45-117) 10/06/17 06:00 Total Protein 8.2 g/dl (6.4-8.2) 10/06/17 06:00 Albumin 3.9 g/dl (3.4-5.0) 10/06/17 06:00 Urine Color Yellow 10/07/17 08:00 Urine Appearance Cloudy 10/07/17 08:00 Urine pH 5.0 (5.0-8.0) 10/07/17 08:00 Ur Specific [place] 1.018 (1.001-1.035) 10/07/17 08:00 Urine Protein Negative (NEGATIVE) 10/07/17 08:00 Urine Glucose (UA) Negative (NEGATIVE) 10/07/17 08:00 Urine Ketones Negative (NEGATIVE) 10/07/17 08:00 Urine Blood Negative (NEGATIVE) 10/07/17 08:00 Urine Nitrite Negative (NEGATIVE) 10/07/17 08:00 Urine Bilirubin Negative (<2.0 mg/dL) 10/07/17 08:00 Urine Urobilinogen Negative mg/dL (0.2-1.0) 10/07/17 08:00 Ur Leukocyte Esterase Trace (NEGATIVE) 10/07/17 08:00 Urine WBC (Auto) 4 /hpf (3-5) 10/07/17 08:00 Urine RBC (Auto) 1 /hpf (0-3) 10/07/17 08:00 Ur Epithelial Cells Many /HPF (FEW) 10/07/17 08:00 Urine Bacteria Many /hpf (NONE SEEN) 10/07/17 08:00 Hyaline Casts 2 /lpf 10/07/17 08:00 Urine Mucus Rare 10/07/17 08:00 RPR Titer Nonreactive (NONREACTIVE) 10/06/17 06:00 lab noted repeat bun 10/07/17 13:22 Assessment: 10/07/17 13:22 withdrawal sx Plan: continue detox repeat bun
[2017-10-07] MEDS: chlordiazePOXIDE HCL 25 MG CAPSULE PO PRN (14:05)
[2017-10-07] MEDS: chlordiazePOXIDE 5 MG CAPSULE PO SCH ×2 (17:25→21:59)
[2017-10-07] MEDS: THIAMINE HCL 100 MG TABLET (FP) PO SCH (21:59)
[2017-10-07] MEDS: MELATONIN 5 MG TABLETS PO PRN (22:00)
[2017-10-08] MEDS: chlordiazePOXIDE HCL 25 MG CAPSULE PO PRN ×3 (01:09→12:13)
[2017-10-08] MEDS ORDERED: METHADONE HCL 40 MG DISPERSABLE TABLET ONE (05:02)
[2017-10-08] MEDS ORDERED: METHADONE HCL 10 MG TABLET ONE (05:03)
[2017-10-08] MEDS: chlordiazePOXIDE 5 MG CAPSULE PO SCH ×2 (05:04→10:11)
[2017-10-08] MEDS: METHADONE 40 MG, METHADONE 30 MG PO SCH (05:06)
[2017-10-08] MEDS: NICOTINE 21 MG/24 HOURS TOPICAL PATCH TD SCH (10:12)
[2017-10-08] MEDS: PRENATAL VITAMINS W/ FOLIC ACID TABLET (FP) PO SCH (10:12)
--- NOTE | 2017-10-08 13:37 | PN ---
S Progress Note (SOAP) Subjective: alert,irritable,anxious,interrupted sleep Objective: 10/08/17 13:35 alert,irritable,anxious,interrupted sleep 10/08/17 13:36 Vital Signs Temperature 98.2 F 10/08/17 10:02 Pulse Rate 68 10/08/17 10:02 Respiratory Rate 18 10/08/17 10:02 Blood Pressure 105/65 10/08/17 10:02 O2 Sat by Pulse Oximetry (%) Assessment: 10/08/17 13:36 withdrawal symptom Plan: continue detox,encourage oral fluid,discharge in am
[2017-10-08] MEDS: chlordiazePOXIDE HCL 10 MG CAPSULE PO SCH ×2 (17:30→22:02)
[2017-10-08 17:33] VITALS: TEMP 98.1
[2017-10-08] MEDS: THIAMINE HCL 100 MG TABLET (FP) PO SCH (22:02)
[2017-10-08] MEDS: MELATONIN 5 MG TABLETS PO PRN (22:02)
[2017-10-08 22:36] VITALS: BP 114/68; PULSE 78
[2017-10-09] MEDS ORDERED: METHADONE HCL 10 MG TABLET ONE (05:14)
[2017-10-09] MEDS ORDERED: METHADONE HCL 40 MG DISPERSABLE TABLET ONE (05:14)
[2017-10-09] MEDS: chlordiazePOXIDE HCL 10 MG CAPSULE PO SCH (05:18)
[2017-10-09] MEDS: METHADONE 40 MG, METHADONE 30 MG PO SCH (05:18)
--- NOTE | 2017-10-09 10:20 | PN ---
S Progress Note (SOAP) Subjective: alert,no complaint Objective: 10/09/17 10:18 Vital Signs Temperature 98.1 F 10/08/17 22:36 Pulse Rate 78 10/08/17 22:36 Respiratory Rate 16 10/08/17 22:36 Blood Pressure 114/68 10/08/17 22:36 O2 Sat by Pulse Oximetry (%) Assessment: 10/09/17 10:19 detox completed,no withdrawal symptom Plan: discharge today,follow up with after care program as arrangement
--- NOTE | 2017-10-09 10:28 | DS ---
[facility] Detox Discharge Summary Admission Date: 10/05/17 Discharge Date: 10/09/17 - History Present History: Alcohol Dependence, Cocaine Dependence, Sedative Dependence, MMTP Additional Comments: follow up with after care program as arrangement,follow up with primary care provider for medical problem,reinforce about compliance with medication and follow up regularly by primary care provider ,patient understand and will comply Pertinent Past History: hiv hepatitis c dehydration nicotine dependence - Physical Exam Results Vital Signs: Vital Signs Temperature 98.1 F 10/08/17 22:36 Pulse Rate 78 10/08/17 22:36 Respiratory Rate 16 10/08/17 22:36 Blood Pressure 114/68 10/08/17 22:36 O2 Sat by Pulse Oximetry (%) Pertinent Admission Physical Exam Findings: withdrawal signs and symptom - Treatment Hospital Course: Detox Protocol Followed, Detoxed Safely, Responded well, Discharged Condition Good, Rehab Referral Accepted Patient has Accepted a Rehab Referral to: [facility] - Medication Discharge Medications: Ambulatory Orders Dolutegravir Sodium [Tivicay] 50 mg PO DAILY 10/05/17 Emtricitabine/Tenofov Alafenam [Descovy 200-25 mg Tablet (Nf)] 1 each PO DAILY 10/05/17 - Diagnosis (1) Alcohol dependence with uncomplicated withdrawal Status: Chronic (2) Cocaine dependence, uncomplicated Status: Chronic (3) HIV (human immunodeficiency virus infection) Status: Chronic (4) Methadone maintenance therapy patient Status: Chronic (5) Sedative, hypnotic or anxiolytic dependence with withdrawal, uncomplicated Status: Chronic (6) Hepatitis C Status: Chronic (7) Nicotine dependence Status: Chronic Qualifiers: Nicotine product type: cigarettes Substance use status: uncomplicated Qualified Code(s): F17.210 - Nicotine dependence, cigarettes, uncomplicated (8) PPD positive, treated Status: Resolved - AMA Did Patient Leave Against Medical Advice: No
== END 2017-10-09 09:53 | disposition home or self-care (01) | DRG 773 ==
LOC: YASAS 10:50 → Y6N 14:08
PROVIDERS: ADMIT Surgery; ATTEND Surgery
PROC: HZ2ZZZZ Detoxification Services for Substance Abuse Treatment (ICD-10-PCS; principal; 2017-10-05)
DX: F10.230 Alcohol dependence with withdrawal, uncomplicated (principal); F11.20 Opioid dependence, uncomplicated; F13.230 Sedative, hypnotic or anxiolytic dependence with withdrawal, uncomplicated; F12.20 Cannabis dependence, uncomplicated; F17.210 Nicotine dependence, cigarettes, uncomplicated; Z21 Asymptomatic human immunodeficiency virus [HIV] infection status; B18.2 Chronic viral hepatitis C; R76.11 Nonspecific reaction to tuberculin skin test without active tuberculosis; E86.0 Dehydration
CPT/HCPCS: 36415; 80048; 80053; 81003; 81015; 84520; 85027; 86593; 93005; 93010

== ENCOUNTER 2018-01-30 12:43 | Inpatient (IN) | payer OTHER ==
[2018-01-30 13:51] VITALS: BMI 31.8
--- NOTE | 2018-01-30 15:53 | HP ---
CIWA Score Nausea/Vomitin-No Nausea/No Vomiting Muscle Tremors: 3 Anxiety: 4-Mod. Anxious/Guarded Agitation: 4-Moderately Restless Paroxysmal Sweats: 3 Orientation: 0-Oriented Tacttile Disturbances: 0-None Auditory Disturbances: 0-None Visual Disturbances: 0-None Headache: 1-Very Mild CIWA-Ar Total Score: 15 - Admission Criteria [facility] Guidelines: Admission for Medically Managed Detox: Requires at least one of the followin. CIWA greater than 12 2. Seizures within the past 24 hours 3. Delirium tremens within the past 24 hours 4. Hallucinations within the past 24 hours 5. Acute intervention needed for co occurring medical disorder 6. Acute intervention needed for co occurring psychiatric disorder 7. Severe withdrawal that cannot be handled at a lower level of care (continued vomiting, continued diarrhea, abnormal vital signs) requiring intravenous medication and/or fluids 8. Admission ROS [facility] - HPI Chief Complaint: I need to get detox and go to rehab. Allergies/Adverse Reactions: Allergies Allergy/AdvReac Type Severity Reaction Status Date / Time No Known Drug Allergies Allergy Verified 01/30/18 15:31 History of Present Illness: pt is a 42yr old female with a long history of alcohol dependence seeking detox for treatment. pt is on mmtp program on 70mg last dose today, pending verification. - Ebola screening Have you traveled outside of the country in the last 21 days: No Have you had contact with anyone from an Ebola affected area: No Have you been sick,other than usual withdrawal symptoms: No Do you have a fever: No - Review of Systems Constitutional: Chills, Diaphoresis, Changes in sleep EENT: reports: No Symptoms Reported Respiratory: reports: No Symptoms reported Cardiac: reports: No Symptoms Reported GI: reports: Constipated, Poor Appetite, Poor Fluid Intake : reports: No Symptoms Reported Musculoskeletal: reports: No Symptoms Reported Integumentary: reports: Flushing, Sweating Neuro: reports: Headache, Tingling, Tremors Endocrine: reports: Excessive Sweating, Flushing, Intolerance to Cold, Intolerance to Heat Hematology: reports: No Symptoms Reported Psychiatric: reports: Judgement Intact, Mood/Affect Appropiate, Orientated x3, Agitated, Anxious Other Systems: Reviewed and Negative Patient History - Patient Medical History Hx Anemia: No Hx Asthma: No Hx Chronic Obstructive Pulmonary Disease (COPD): No Hx Cancer: No Hx Cardiac Disorders: No Hx Congestive Heart Failure: No Hx Hypertension: No Hx Hypercholesterolemia: No Hx Pacemaker: No HX Cerebrovascular Accident: No Hx Seizures: No Hx Dementia: No Hx Diabetes: No Hx Gastrointestinal Disorders: No Hx Liver Disease: No Hx Genitourinary Disorders: No Hx Sexually Transmitted Disorders: No Hx Renal Disease (ESRD): No Hx Thyroid Disease: No Hx Human Immunodeficiency Virus (HIV): Yes (July 2017 @ [facility] no meds x 2 weeks - Not on medication) Hx Hepatitis C: Yes (Not on medication) Hx Depression: No Hx Suicide Attempt: No Hx Bipolar Disorder: Yes (Not on medication) Hx Schizophrenia: No - Patient Surgical History Past Surgical History: No Hx Neurologic Surgery: No Hx Cataract Extraction: No Hx Cardiac Surgery: No Hx Lung Surgery: No Hx Breast Surgery: No Hx Breast Biopsy: No Hx Abdominal Surgery: No Hx Appendectomy: Yes (age 7) Hx Cholecystectomy: No Hx Genitourinary Surgery: No Hx Section: No Hx Orthopedic Surgery: No Other Surgical History: tonsillectomy age 14 Anesthesia Reaction: No - PPD History Previous Implant?: Yes Documented Results: Positive w/o proof Implanted On Prior [facility] Admission?: No Date: 11/30/16 Results: CXR(-)11/30/16 PPD to be Administered?: No - Reproductive History Patient is a Female of Child Bearing Age (11 -55 yrs old): Yes Last Menstrual Period: 01/30/18 Patient : No - Smoking Cessation Smoking history: Current every day smoker Have you smoked in the past 12 months: Yes Aproximately how many cigarettes per day: 20 Cigars Per Day: 0 Hx Chewing Tobacco Use: No Initiated information on smoking cessation: Yes 'Breaking Loose' booklet given: 01/30/18 - Substance & Tx. History Hx Alcohol Use: Yes Hx Substance Use: Yes Substance Use Type: Alcohol, Cocaine Hx Substance Use Treatment: Yes (last detoc [facility] 2017) - Substances Abused Alcohol Route: Oral Frequency: Daily Amount used: 2 pints vodka Age of first use: 11 Date of Last Use: 01/30/18 Cocaine Route: Injection Frequency: Daily Amount used: $100 Age of first use: 14 Date of Last Use: 01/29/18 Marijuana/Hashish Route: Smoking Frequency: 1-2 times per week Amount used: $20 Age of first use: 11 Date of Last Use: 01/28/18 Heroin Route: Injection Frequency: 3-6 times per week Amount used: 10 bags Age of first use: 14 Date of Last Use: 01/29/18 xanax or klonopin Route: Oral Frequency: 3-6 times per week Amount used: 4mg Age of first use: 21 Date of Last Use: 01/28/18 Family Disease History - Family Disease History Family Disease History: Other: Father (living, on dialysis, etoh/drugs), Mother (living, healthy), Brother (one - living- healthy ) Admission Physical Exam [facility] - Vital Signs Vital Signs: Vital Signs - 24 hr 01/30/18 13:49 Temperature 98.9 F Pulse Rate 71 Respiratory 20 Rate Blood Pressure 137/92 - Physical General Appearance: Yes: Nourished, Appropriately Dressed, Mild Distress HEENTM: Yes: Normal Voice, Nasal Congestion, Rhinorrhea Respiratory: Yes: Lungs Clear, Normal Breath Sounds, No Respiratory Distress Neck: Yes: No masses,lesions,Nodules Breast: Yes: Within Normal Limits Cardiology: Yes: Regular Rhythm, Regular Rate, S1, S2 Abdominal: Yes: Normal Bowel Sounds Genitourinary: Yes: Within Normal Limits Back: Yes: Normal Inspection Musculoskeletal: Yes: full range of Motion, Back pain Extremities: Yes: Normal Capillary Refill, Normal Inspection, Non-Tender, Tremors Neurological: Yes: Fully Oriented, Alert, Normal Response Integumentary: Yes: Normal Color, Diaphoresis, Track [place] Lymphatic: Yes: Within Normal Limits - Diagnostic (1) Alcohol dependence with uncomplicated withdrawal Current Visit: Yes Status: Chronic (2) HCV (hepatitis C virus) Current Visit: Yes Status: Chronic Qualifiers: Viral hepatitis chronicity: chronic (3) HIV (human immunodeficiency virus infection) Current Visit: Yes Status: Chronic Comment: Recently dx'ed in July 2017. Has not taken ARV x 2 months , can't recall names. (4) Hepatitis C Current Visit: Yes Status: Chronic Qualifiers: Viral hepatitis chronicity: chronic (5) Methadone maintenance therapy patient Current Visit: Yes Status: Chronic Comment: LDM on 10/04/2017 with methadone [facility]mg/d at [facility]. Verified by Lorin Valencia LPN. (6) Nicotine dependence Current Visit: Yes Status: Chronic Qualifiers: Nicotine product type: cigarettes Substance use status: uncomplicated Qualified Code(s): F17.210 - Nicotine dependence, cigarettes, uncomplicated (7) Sedative, hypnotic or anxiolytic dependence with withdrawal, uncomplicated Current Visit: Yes Status: Chronic Cleared for Admission [facility] - Detox or Rehab [facility] Level of Care: Medically Managed Detox Regimen/Protocol: Librium [facility] Breath Alcohol Content Breath Alcohol Content: 0 Urine Pregancy Test - Result Urine Test Results: Negative- NO Line Present Urine Drug Screen - Results Drug Screen Negative: No Urine Drug Screen Results: THC-Marijuana, CARMEN-Cocaine, OPI-Opiates, BZO- Benzodiazepines, MTD-Methadone, FEN-Fentanyl
[2018-01-30] MEDS ORDERED: hydrOXYzine PAMOATE 50 MG CAPSULE (FP) PO PRN (16:00)
[2018-01-30] MEDS ORDERED: MAGNESIUM HYDROX 2400MG/30ML ORAL SUSPENSION 30 ML CUP PO PRN (16:00)
[2018-01-30] MEDS ORDERED: MAGNESIUM CITRATE 300 ML BOTTLE PO PRN (16:00)
[2018-01-30] MEDS ORDERED: P-EPHED 60MG/TRIPROLIDI 2.5MG TABLET PO PRN (16:00)
[2018-01-30] MEDS ORDERED: chlordiazePOXIDE HCL 25 MG CAPSULE PO PRN (16:00)
[2018-01-30] MEDS ORDERED: IBUPROFEN 400 MG TABLET (FP) PO PRN (16:00)
[2018-01-30] MEDS ORDERED: LOPERAMIDE HCL 2 MG CAPSULE PO PRN (16:00)
[2018-01-30] MEDS ORDERED: chlordiazePOXIDE HCL 25 MG CAPSULE PO ONE (16:00)
[2018-01-30] MEDS ORDERED: NICOTINE POLACRILEX 4 MG GUM BC PRN (16:00)
[2018-01-30] MEDS ORDERED: MENTHOL/PHENOL 1 EACH UD MM PRN (16:00)
[2018-01-30] MEDS ORDERED: guaiFENesin/D-METHORPHAN HB 10 ML UNIT-DOSE CUPS PO PRN (16:00)
[2018-01-30] MEDS ORDERED: ACETAMINOPHEN 325 MG TABLET (FP) PO PRN (16:00)
--- NOTE | 2018-01-30 16:53 | PN ---
[facility] Progress Note Note: Patient has not been taking Tivivay or Descovey in months. Explained that patient needs to be reevaluated by their HIV provider and bring in current meds. Patient verbalized an understanding that HIV medications will not be given during this admission.
[2018-01-30] MEDS: chlordiazePOXIDE HCL 25 MG CAPSULE PO SCH ×2 (18:08→22:15)
[2018-01-30] MEDS: MELATONIN 5 MG TABLETS PO PRN (22:15)
[2018-01-30] MEDS: THIAMINE HCL 100 MG TABLET (FP) PO SCH (22:15)
[2018-01-30 23:26] LABS: URINE APPEARANCE SLCLOUDY; URINE BILIRUBIN NEGATIVE (<2.0 mg/dL); URINE COLOR YELLOW; URINE GLUCOSE (UA) NEGATIVE (NEGATIVE); URINE KETONE NEGATIVE (NEGATIVE); URINE LEUK ESTERASE NEGATIVE (NEGATIVE); URINE NITRITE NEGATIVE (NEGATIVE); URINE PROTEIN NEGATIVE (NEGATIVE); URINE UROBILINOGEN NEGATIVE mg/dL (0.2-1.0)
[2018-01-30 23:28] LABS: EPI CELLS FEW /HPF (FEW); URINE MUCUS RARE
[2018-01-31] MEDS: chlordiazePOXIDE HCL 25 MG CAPSULE PO SCH ×4 (05:28→22:02)
[2018-01-31] MEDS ORDERED: METHADONE HCL 10 MG TABLET PO ONE (08:35)
[2018-01-31] MEDS ORDERED: METHADONE 40 MG, METHADONE 30 MG PO ONE (08:45)
[2018-01-31] MEDS ORDERED: METHADONE HCL 40 MG DISPERSABLE TABLET ONE (09:22)
[2018-01-31] MEDS ORDERED: METHADONE HCL 10 MG TABLET ONE (09:23)
[2018-01-31] MEDS ORDERED: DOLUTEGRAVIR SODIUM 50 MG TABLET (NON-FORMULARY) PO SCH (10:00)
[2018-01-31] MEDS ORDERED: EMTRICITABINE/TENOFOV ALAFENAM (DESCOVY) TABLET PO SCH (10:00)
[2018-01-31] MEDS: NICOTINE 21 MG/24 HOURS TOPICAL PATCH TD SCH (10:02)
[2018-01-31] MEDS: PRENATAL VITAMINS W/ FOLIC ACID TABLET (FP) PO SCH (10:02)
--- NOTE | 2018-01-31 10:07 | PN ---
S CIWA - CIWA Score Nausea/Vomitin-Mild Nausea/No Vomiting Muscle Tremors: 4-Moderate,w/Arms Extend Anxiety: 4-Mod. Anxious/Guarded Agitation: 4-Moderately Restless Paroxysmal Sweats: 3 Orientation: 0-Oriented Tacttile Disturbances: 0-None Auditory Disturbances: 0-None Visual Disturbances: 0-None Headache: 0-None Present CIWA-Ar Total Score: 16 BHS Progress Note (SOAP) Subjective: agitation sweats shakes interrupted sleep nausea Objective: 01/31/18 10:06 Vital Signs Temperature 97.9 F 01/31/18 10:00 Pulse Rate 109 H 01/31/18 10:00 Respiratory Rate 18 01/31/18 10:00 Blood Pressure 129/56 L 01/31/18 10:00 O2 Sat by Pulse Oximetry (%) Laboratory Tests 01/30/18 22:00 Urine Color Yellow Urine Appearance Slcloudy Urine pH 6.0 Ur Specific [place] 1.023 Urine Protein Negative Urine Glucose (UA) Negative Urine Ketones Negative Urine Blood 1+ H Urine Nitrite Negative Urine Bilirubin Negative Urine Urobilinogen Negative Ur Leukocyte Esterase Negative Urine WBC (Auto) 4 Urine RBC (Auto) 3 Ur Epithelial Cells Few Urine Mucus Rare rest of labs pending aaox3 ambulating no acute distress Assessment: 01/31/18 10:07 withdrawal sx Plan: continue detox increase fluids labs pending
[2018-01-31 10:36] LABS: HEMATOCRIT 34.6 % (32.4-45.2); MCH 27.2 pg (25.7-33.7); MCHC 31.8 g/dl (32.0-36.0); MEAN CELL VOLUME 85.4 fl (80-96); MEAN PLT VOLUME 7.7 fl (7.5-11.1); PLATELET COUNT 259 K/MM3 (134-434); RBC 4.06 M/mm3 (3.60-5.2); RDW 15.2 % (11.6-15.6); WHITE BLOOD COUNT 5.3 K/mm3 (4.0-10.0)
[2018-01-31 10:52] LABS: ALBUMIN 3.5 g/dl (3.4-5.0); ALK PHOS 92 U/L (45-117); ANION GAP 9 MMOL/L (8-16); BILIRUBIN,TOTAL 0.5 mg/dL (0.2-1); BLOOD UREA NITROGEN 15 mg/dL (7-18); CALCIUM 8.7 mg/dL (8.5-10.1); CHLORIDE 104 mmol/L (98-107); CO2 24 mmol/L (21-32); CREATININE 0.7 mg/dL (0.55-1.3); GLUCOSE,RANDOM 84 mg/dL (74-106); POTASSIUM 4.1 mmol/L (3.5-5.1); SGOT/AST 12 U/L (15-37); SGPT/ALT 21 U/L (13-61); SODIUM 137 mmol/L (136-145); TOT PROT 7.5 g/dl (6.4-8.2)
[2018-01-31] MEDS: THIAMINE HCL 100 MG TABLET (FP) PO SCH (22:01)
[2018-01-31] MEDS: MELATONIN 5 MG TABLETS PO PRN (22:02)
[2018-02-01] MEDS ORDERED: METHADONE HCL 40 MG DISPERSABLE TABLET ONE (05:21)
[2018-02-01] MEDS ORDERED: METHADONE HCL 10 MG TABLET ONE (05:22)
[2018-02-01] MEDS: chlordiazePOXIDE HCL 25 MG CAPSULE PO SCH ×2 (05:52→10:10)
[2018-02-01] MEDS: METHADONE 40 MG, METHADONE 30 MG PO SCH (05:52)
[2018-02-01] MEDS ORDERED: METHADONE HCL 40 MG DISPERSABLE TABLET PO SCH (06:00)
[2018-02-01] MEDS: PRENATAL VITAMINS W/ FOLIC ACID TABLET (FP) PO SCH (10:10)
[2018-02-01] MEDS: NICOTINE 21 MG/24 HOURS TOPICAL PATCH TD SCH (10:11)
--- NOTE | 2018-02-01 11:02 | PN ---
[facility] CIWA - CIWA Score Nausea/Vomitin-No Nausea/No Vomiting Muscle Tremors: 3 Anxiety: 3 Agitation: 4-Moderately Restless Paroxysmal Sweats: 3 Orientation: 0-Oriented Tacttile Disturbances: 0-None Auditory Disturbances: 0-None Visual Disturbances: 0-None Headache: 0-None Present CIWA-Ar Total Score: 13 S Progress Note (SOAP) Subjective: sweats anxiety interrupted sleep Objective: 02/01/18 11:01 Vital Signs Temperature 98.2 F 02/01/18 10:08 Pulse Rate 77 02/01/18 10:08 Respiratory Rate 18 02/01/18 10:08 Blood Pressure 102/65 02/01/18 10:08 O2 Sat by Pulse Oximetry (%) Laboratory Tests 01/30/18 01/31/18 01/31/18 22:00 07:40 07:40 WBC RBC Hgb Hct MCV MCH MCHC RDW Plt Count MPV Sodium 137 Potassium 4.1 Chloride 104 Carbon Dioxide 24 Anion Gap 9 BUN 15 Creatinine 0.7 Creat Clearance w eGFR > 60 Random Glucose 84 Calcium 8.7 Total Bilirubin 0.5 AST 12 L ALT 21 Alkaline Phosphatase 92 Total Protein 7.5 Albumin 3.5 Urine Color Yellow Urine Appearance Slcloudy Urine pH 6.0 Ur Specific [place] 1.023 Urine Protein Negative Urine Glucose (UA) Negative Urine Ketones Negative Urine Blood 1+ H Urine Nitrite Negative Urine Bilirubin Negative Urine Urobilinogen Negative Ur Leukocyte Esterase Negative Urine WBC (Auto) 4 Urine RBC (Auto) 3 Ur Epithelial Cells Few Urine Mucus Rare RPR Titer Nonreactive 01/31/18 08:00 WBC 5.3 RBC 4.06 Hgb 11.0 Hct 34.6 MCV 85.4 MCH 27.2 MCHC 31.8 L RDW 15.2 Plt Count 259 MPV 7.7 Sodium Potassium Chloride Carbon Dioxide Anion Gap BUN Creatinine Creat Clearance w eGFR Random Glucose Calcium Total Bilirubin AST ALT Alkaline Phosphatase Total Protein Albumin Urine Color Urine Appearance Urine pH Ur Specific [place] Urine Protein Urine Glucose (UA) Urine Ketones Urine Blood Urine Nitrite Urine Bilirubin Urine Urobilinogen Ur Leukocyte Esterase Urine WBC (Auto) Urine RBC (Auto) Ur Epithelial Cells Urine Mucus RPR Titer aaox3 ambulating no acute distress Assessment: 02/01/18 11:01 withdrawal sx Plan: continue detox increase fluids benadryl 50mg qhs for insomnia as per pt request. pt states this works better than trazadone or melatonin
[2018-02-01] MEDS: chlordiazePOXIDE 5 MG CAPSULE PO SCH ×2 (17:15→22:02)
[2018-02-01] MEDS ORDERED: diphenhydrAMINE HCL 25 MG CAPSULE (FP) PO ONE (21:35)
[2018-02-01] MEDS: THIAMINE HCL 100 MG TABLET (FP) PO SCH (22:02)
[2018-02-01] MEDS: MELATONIN 5 MG TABLETS PO PRN (22:02)
[2018-02-01] MEDS: diphenhydrAMINE HCL 50 MG CAPSULE PO PRN (22:02)
[2018-02-02] MEDS ORDERED: METHADONE HCL 40 MG DISPERSABLE TABLET ONE (04:55)
[2018-02-02] MEDS ORDERED: METHADONE HCL 10 MG TABLET ONE (04:55)
[2018-02-02] MEDS: chlordiazePOXIDE 5 MG CAPSULE PO SCH ×2 (05:16→10:19)
[2018-02-02] MEDS: METHADONE 40 MG, METHADONE 30 MG PO SCH (05:17)
[2018-02-02] MEDS: MAG HYDROX/AL HYDROX/SIMETH 30 ML UNIT-DOSE CUP PO PRN ×3 (09:40→23:24)
[2018-02-02] MEDS: PRENATAL VITAMINS W/ FOLIC ACID TABLET (FP) PO SCH (10:19)
[2018-02-02] MEDS: NICOTINE 21 MG/24 HOURS TOPICAL PATCH TD SCH (10:19)
--- NOTE | 2018-02-02 14:55 | PN ---
[facility] Progress Note (SOAP) Subjective: heartburn sweats gassy Objective: 02/02/18 14:53 a & O x 3 ambulating on unit steadily anxious Vital Signs Temperature 98.0 F 02/02/18 14:43 Pulse Rate 81 02/02/18 14:43 Respiratory Rate 18 02/02/18 14:43 Blood Pressure 114/78 02/02/18 14:43 O2 Sat by Pulse Oximetry (%) Assessment: 02/02/18 14:54 withdrawal sx Plan: continuie detox for d/c in a.m
[2018-02-02] MEDS: chlordiazePOXIDE HCL 10 MG CAPSULE PO SCH ×2 (17:03→22:07)
[2018-02-02] MEDS ORDERED: diphenhydrAMINE HCL 25 MG CAPSULE (FP) PO ONE (21:54)
[2018-02-02] MEDS: diphenhydrAMINE HCL 50 MG CAPSULE PO PRN (22:08)
[2018-02-02] MEDS: THIAMINE HCL 100 MG TABLET (FP) PO SCH (22:08)
[2018-02-02 22:17] VITALS: TEMP 98.1
[2018-02-03] MEDS ORDERED: METHADONE HCL 40 MG DISPERSABLE TABLET ONE (04:10)
[2018-02-03] MEDS ORDERED: METHADONE HCL 10 MG TABLET ONE (04:10)
[2018-02-03] MEDS: METHADONE 40 MG, METHADONE 30 MG PO SCH (05:39)
[2018-02-03 06:26] VITALS: BP 140/56; PULSE 76
[2018-02-03] MEDS: chlordiazePOXIDE HCL 10 MG CAPSULE PO SCH (06:29)
--- NOTE | 2018-02-03 08:39 | DS ---
[facility] Detox Discharge Summary Admission Date: 01/30/18 Discharge Date: 02/03/18 - History Present History: Alcohol Dependence Additional Comments: 42 years old female admitted on01/30/18 for alcohol withdrawal sx completed alcohol detox regimen tolerated well alert oriented x 3 no acute distress aftercare [facility] patient agrees return tomorrow for rehab admission Pertinent Past History: patient prefers continue methadone program at 70 mg po daily - Physical Exam Results Vital Signs: Vital Signs Temperature 98.1 F 02/03/18 06:00 Pulse Rate 76 02/03/18 06:00 Respiratory Rate 18 02/03/18 06:00 Blood Pressure 140/56 L 02/03/18 06:00 O2 Sat by Pulse Oximetry (%) Pertinent Admission Physical Exam Findings: alcohol withdrawal sx Vital Signs Temperature 98.1 F 02/03/18 06:00 Pulse Rate 76 02/03/18 06:00 Respiratory Rate 18 02/03/18 06:00 Blood Pressure 140/56 L 02/03/18 06:00 O2 Sat by Pulse Oximetry (%) Laboratory Last Values WBC 5.3 K/mm3 (4.0-10.0) 01/31/18 08:00 RBC 4.06 M/mm3 (3.60-5.2) 01/31/18 08:00 Hgb 11.0 GM/dL (10.7-15.3) 01/31/18 08:00 Hct 34.6 % (32.4-45.2) 01/31/18 08:00 MCV 85.4 fl (80-96) 01/31/18 08:00 MCH 27.2 pg (25.7-33.7) 01/31/18 08:00 MCHC 31.8 g/dl (32.0-36.0) L 01/31/18 08:00 RDW 15.2 % (11.6-15.6) 01/31/18 08:00 Plt Count 259 K/MM3 (134-434) 01/31/18 08:00 MPV 7.7 fl (7.5-11.1) 01/31/18 08:00 Sodium 137 mmol/L (136-145) 01/31/18 07:40 Potassium 4.1 mmol/L (3.5-5.1) 01/31/18 07:40 Chloride 104 mmol/L (98-107) 01/31/18 07:40 Carbon Dioxide 24 mmol/L (21-32) 01/31/18 07:40 Anion Gap 9 MMOL/L (8-16) 01/31/18 07:40 BUN 15 mg/dL (7-18) 01/31/18 07:40 Creatinine 0.7 mg/dL (0.55-1.3) 01/31/18 07:40 Creat Clearance w eGFR > 60 (>60) 01/31/18 07:40 Random Glucose 84 mg/dL (74-106) 01/31/18 07:40 Calcium 8.7 mg/dL (8.5-10.1) 01/31/18 07:40 Total Bilirubin 0.5 mg/dL (0.2-1) 01/31/18 07:40 AST 12 U/L (15-37) L 01/31/18 07:40 ALT 21 U/L (13-61) 01/31/18 07:40 Alkaline Phosphatase 92 U/L (45-117) 01/31/18 07:40 Total Protein 7.5 g/dl (6.4-8.2) 01/31/18 07:40 Albumin 3.5 g/dl (3.4-5.0) 01/31/18 07:40 Urine Color Yellow 01/30/18 22:00 Urine Appearance Slcloudy 01/30/18 22:00 Urine pH 6.0 (5.0-8.0) 01/30/18 22:00 Ur Specific [place] 1.023 (1.010-1.035) 01/30/18 22:00 Urine Protein Negative (NEGATIVE) 01/30/18 22:00 Urine Glucose (UA) Negative (NEGATIVE) 01/30/18 22:00 Urine Ketones Negative (NEGATIVE) 01/30/18 22:00 Urine Blood 1+ (NEGATIVE) H 01/30/18 22:00 Urine Nitrite Negative (NEGATIVE) 01/30/18 22:00 Urine Bilirubin Negative (<2.0 mg/dL) 01/30/18 22:00 Urine Urobilinogen Negative mg/dL (0.2-1.0) 01/30/18 22:00 Ur Leukocyte Esterase Negative (NEGATIVE) 01/30/18 22:00 Urine WBC (Auto) 4 /hpf (3-5) 01/30/18 22:00 Urine RBC (Auto) 3 /hpf (0-3) 01/30/18 22:00 Ur Epithelial Cells Few /HPF (FEW) 01/30/18 22:00 Urine Mucus Rare 01/30/18 22:00 RPR Titer Nonreactive (NONREACTIVE) 01/31/18 07:40 lab noted - Treatment Hospital Course: Detox Protocol Followed, Detoxed Safely, Responded well, Discharged Condition Good, Rehab Referral Accepted Patient has Accepted a Rehab Referral to: [facility] - Medication Discharge Medications: Ambulatory Orders Dolutegravir Sodium [Tivicay] 50 mg PO DAILY 10/05/17 Emtricitabine/Tenofov Alafenam [Descovy 200-25 mg Tablet (Nf)] 1 each PO DAILY 10/05/17 - Diagnosis (1) Alcohol dependence with uncomplicated withdrawal Status: Acute (2) HCV (hepatitis C virus) Status: Chronic Qualifiers: Viral hepatitis chronicity: chronic (3) HIV (human immunodeficiency virus infection) Status: Chronic (4) Methadone maintenance therapy patient Status: Chronic (5) Nicotine dependence Status: Acute Qualifiers: Nicotine product type: cigarettes Substance use status: in withdrawal Qualified Code(s): F17.213 - Nicotine dependence, cigarettes, with withdrawal (6) PPD positive, treated Status: Resolved - AMA Did Patient Leave Against Medical Advice: No
== END 2018-02-03 09:38 | disposition home or self-care (01) | DRG 773 ==
LOC: YASAS 12:43 → Y6N 17:05 → UNDODISIN 02-02 12:45
PROC: HZ2ZZZZ Detoxification Services for Substance Abuse Treatment (ICD-10-PCS; principal; 2018-01-30)
DX: F10.230 Alcohol dependence with withdrawal, uncomplicated (principal); F13.230 Sedative, hypnotic or anxiolytic dependence with withdrawal, uncomplicated; F14.20 Cocaine dependence, uncomplicated; F11.20 Opioid dependence, uncomplicated; F17.213 Nicotine dependence, cigarettes, with withdrawal; F19.280 Other psychoactive substance dependence with psychoactive substance-induced anxiety disorder; F31.9 Bipolar disorder, unspecified; Z21 Asymptomatic human immunodeficiency virus [HIV] infection status; B18.2 Chronic viral hepatitis C; E86.0 Dehydration; R76.11 Nonspecific reaction to tuberculin skin test without active tuberculosis
CPT/HCPCS: 36415; 80053; 81003; 81015; 85027; 86593